=== PATIENT | female | born 1935 | race Caucasian/White ===

== ENCOUNTER 2022-01-28 12:19 | Observation (INO) ==
[2022-01-28] MEDS ORDERED: NS 0.9% 1000 ml BAG 1,000 ML IV ONE (13:26)
[2022-01-28] MEDS ORDERED: Acetaminophen IV 1 GM/100ML 1,000 MG/100 ML BAG IV ONE (13:27)
[2022-01-28] MEDS ORDERED: Ondansetron 4 mg VIAL 2 MG/ML 2 ml VIAL IV ONE (13:28)
[2022-01-28 14:20] LABS: ABS Eosinophils 0.1 10^3/ul (0-0.6); ABS Lymphocytes 0.8 10^3/ul (1.0-4.8); ABS Monocytes 0.4 10^3/ul (0-0.8); ABS Neutrophils 4.2 10^3/ul (1.5-7.7); Eosinophil % 1.2 %; Hematocrit 36 % (35-47); Mean Corpuscular HGB Conc 33 g/dL (31-36); Mean Corpuscular Hemoglobin 32 pg (27-31); Mean Corpuscular Volume 95 fL (80-97); Platelet Count 182 10^3/uL (150-450); Red Blood Count 3.77 10^6 /uL (3.70-4.87); Red Cell Distribution Width 15 % (10-15); White Blood Count 5.5 10^3/uL (3.5-10.8)
[2022-01-28 14:50] LABS: Albumin 3.9 g/dL (3.2-5.2); Albumin/Globulin Ratio 1.7 (1-3); Calcium 8.9 mg/dL (8.6-10.3); Globulin 2.3 g/dL (2-4); Magnesium 1.7 mg/dL (1.9-2.7); Potassium 3.5 mmol/L (3.5-5.0); Total Bilirubin 0.6 mg/dL (0.2-1.0); Total Protein 6.2 g/dL (6.4-8.9); eGFR CKD-EPI 51.1 (>60)
[2022-01-28] MEDS ORDERED: Iodixanol (CONTRAST) 320 MG/ML 100 ML SDV IV ONE (14:53)
[2022-01-28] MEDS ORDERED: Magnesium Sulfate 2 gm BAG 2 GM/50 ML BAG IVPB ONE ×2 (15:25→17:52)
[2022-01-28 15:43] LABS: High Sensitivity Troponin 1 Hr 50 pg/mL (<15)
[2022-01-28 16:41] LABS: Urine Appearance Clear; Urine Bilirubin Negative (Negative); Urine Blood 1+ (Negative); Urine Color Yellow; Urine Glucose Negative (Negative); Urine Ketones Trace (Negative); Urine Nitrite Negative (Negative); Urine Protein Negative (Negative); Urine Specific Gravity 1.015 (1.002-1.030); Urine Urobilinogen Negative (Negative)
[2022-01-28 16:44] LABS: Urine Bacteria Absent (Absent); Urine Red Blood Cell Trace(0-2/hpf) (Absent); Urine Squamous Epithelial Cell Present (Absent); Urine White Blood Cell Trace(0-5/hpf) (Absent)
[2022-01-28] MEDS: NS 0.9% 1000 ml BAG 1,000 ML IV SCH (17:33)
[2022-01-28] MEDS ORDERED: Prochlorperazine 5 mg/ml 2 ml VIAL (10 mg) IV PRN (17:41)
[2022-01-28] MEDS ORDERED: Enoxaparin 30 MG/0.3 ML SYR SUBCUT SCH (21:00)
[2022-01-28] MEDS: KCL 10 MEQ/50 ML IVPREMIX 10 MEQ/50 ML BAG IV SCH (23:26)
[2022-01-29] MEDS ORDERED: Benzocaine (plain) Lozenge 15 MG MT PRN (00:13)
[2022-01-29] MEDS: NIRMATRELVIR/RITONAVIR 1 PAK eGFR 30-60 (see instructions) PO SCH ×2 (00:19→08:06)
[2022-01-29] MEDS: KCL 10 MEQ/50 ML IVPREMIX 10 MEQ/50 ML BAG IV SCH (00:33)
[2022-01-29] MEDS: KCL 10 MEQ/50 ML IVPREMIX 10 MEQ/50 ML BAG ONE ×2 (02:00→02:29)
[2022-01-29] MEDS: NS 0.9% 1000 ml BAG 1,000 ML IV SCH (02:20)
[2022-01-29 07:27] LABS: eGFR CKD-EPI 68.8 (>60)
[2022-01-29 12:34] VITALS: BP 137/61
== END 2022-01-29 14:24 | disposition home or self-care (01) ==
LOC: EDHOLD 12:19 → ED 12:19 → MED 18:22
PROVIDERS: ADMIT Internal Medicine; ATTEND Internal Medicine

== ENCOUNTER 2023-08-03 15:05 | Inpatient (IN) ==
[2023-08-03] MEDS: HYDROmorphone 1 MG/1 ML SYRINGE IV ONE ×3 (15:50→18:44)
[2023-08-03 15:57] LABS: ABS Basophils 0.1 10^3/uL (0.0-0.1); ABS Eosinophils 0.3 10^3/uL (0.0-0.5); ABS Lymphocytes 1.7 10^3/uL (1.0-4.8); ABS Monocytes 0.7 10^3/uL (0.0-0.9); ABS Neutrophils 4.5 10^3/uL (1.5-7.6); ABS Nucleated RBC 0.01 10^3/ul; Eosinophil % 3.9 %; Hematocrit 32.2 % (35-45); Hemoglobin 10.9 g/dL (11.5-14.3); Lymphocyte % 23.3 %; Mean Corpuscular Hemoglobin 32.3 pg (27-33); Mean Corpuscular Hgb Conc 33.8 g/dL (31-36); Mean Corpuscular Volume 95.6 fL (80-97); Mean Platelet Volume 8.4 fL (7.5-11.2); Nucleated Red Blood Cells % 0.1 %/100WBC (0.0-0.8); Platelet Count 283 10^3/uL (150-450); Red Blood Count 3.37 10^6/uL (3.63-4.92); Red Cell Distribution Width 16.7 % (12-17); White Blood Count 7.3 10^3/uL (3.8-11.8)
[2023-08-03] MEDS: NS 0.9% 1000 ml BAG 1,000 ML IV ONE (15:59)
[2023-08-03 16:48] LABS: Albumin 3.9 g/dL (3.2-5.2); Albumin/Globulin Ratio 1.6 (1-3); C Reactive Protein 3.05 mg/L (<8.01); Calcium 9.7 mg/dL (8.6-10.3); Creatinine, Serum 1.04 mg/dL (0.51-0.95); Globulin 2.5 g/dL (2-4); Total Bilirubin 0.4 mg/dL (0.2-1.0); Total Protein 6.4 g/dL (6.4-8.9); eGFR CKD-EPI 51.4 (>60)
[2023-08-04] MEDS: Enoxaparin 40 MG/0.4 ML SYR SUBCUT SCH (04:53)
[2023-08-04] MEDS ORDERED: Morphine 2 MG/ML SYRINGE IV PRN (10:04)
[2023-08-04] MEDS: DULoxetine DR 60 mg CAP PO SCH (11:12)
[2023-08-04] MEDS: Cholecalciferol (VIT D3) 1,000 unit TAB PO SCH (11:12)
[2023-08-04] MEDS: Enoxaparin 30 MG/0.3 ML SYR SUBCUT SCH (11:12)
[2023-08-04] MEDS: Senna TAB 8.6 mg TAB PO SCH (11:13)
[2023-08-04] MEDS: Polyethylene Glycol 3350 17 GM PACKET PO SCH (11:13)
[2023-08-04] MEDS ORDERED: Dexamethasone IV 20 MG in NS 0.9% 50 ML 50 ML IVPB ONE (11:53)
[2023-08-04] MEDS: Dexamethasone IV 20 MG in NS 0.9% 50 ML 50 ML IVPB ONE (15:04)
[2023-08-04] MEDS: Lactated Ringers 1000 ml BAG 1,000 ML IV SCH (15:04)
[2023-08-04] MEDS: Dexamethasone IV 4 MG/ML VIAL 1 ml VIAL IV SLOW PU SCH (22:02)
[2023-08-05 12:13] LABS: ABS Lymphocytes 0.5 10^3/uL (1.0-4.8); ABS Monocytes 0.4 10^3/uL (0.0-0.9); ABS Neutrophils 9.8 10^3/uL (1.5-7.6); Hematocrit 33.3 % (35-45); Hemoglobin 11.1 g/dL (11.5-14.3); Lymphocyte % 5.1 %; Mean Corpuscular Hgb Conc 33.2 g/dL (31-36); Mean Corpuscular Volume 96.5 fL (80-97); Mean Platelet Volume 8.4 fL (7.5-11.2); Platelet Count 237 10^3/uL (150-450); Red Blood Count 3.45 10^6/uL (3.63-4.92); Red Cell Distribution Width 16.6 % (12-17); White Blood Count 10.8 10^3/uL (3.8-11.8)
[2023-08-05 13:03] LABS: Calcium 9.6 mg/dL (8.6-10.3); Creatinine, Serum 0.84 mg/dL (0.51-0.95); Magnesium 1.7 mg/dL (1.9-2.7); Potassium 4.5 mmol/L (3.5-5.0); eGFR CKD-EPI 66.4 (>60)
[2023-08-05] MEDS: Dexamethasone IV 4 MG/ML VIAL 1 ml VIAL IV SLOW PU SCH (15:43)
[2023-08-06 06:24] LABS: ABS Lymphocytes 0.6 10^3/uL (1.0-4.8); ABS Monocytes 0.3 10^3/uL (0.0-0.9); ABS Neutrophils 12.7 10^3/uL (1.5-7.6); ABS Nucleated RBC 0.01 10^3/ul; Eosinophil % 0.1 %; Hematocrit 32.6 % (35-45); Hemoglobin 10.9 g/dL (11.5-14.3); Lymphocyte % 4.1 %; Mean Corpuscular Hemoglobin 31.8 pg (27-33); Mean Corpuscular Hgb Conc 33.4 g/dL (31-36); Mean Corpuscular Volume 95.2 fL (80-97); Mean Platelet Volume 8.4 fL (7.5-11.2); Nucleated Red Blood Cells % 0.1 %/100WBC (0.0-0.8); Platelet Count 269 10^3/uL (150-450); Red Blood Count 3.42 10^6/uL (3.63-4.92); Red Cell Distribution Width 16.7 % (12-17); White Blood Count 13.6 10^3/uL (3.8-11.8)
[2023-08-06 06:47] LABS: Calcium 9.6 mg/dL (8.6-10.3); Creatinine, Serum 0.91 mg/dL (0.51-0.95); Magnesium 1.8 mg/dL (1.9-2.7); Potassium 4.3 mmol/L (3.5-5.0); eGFR CKD-EPI 60.3 (>60)
[2023-08-06] MEDS: Magnesium Sulfate 2 gm BAG 2 GM/50 ML BAG IVPB ONE (08:00)
[2023-08-07] MEDS: Magic MouthWash2-BEN/MAAL/LIDO/NYST 240 ML BTL (alt formulation) SWISH SPIT SCH (14:24)
[2023-08-07] MEDS: Magnesium Sulfate 2 gm BAG 2 GM/50 ML BAG IVPB ONE (17:08)
[2023-08-08 07:50] LABS: ABS Lymphocytes 1.5 10^3/uL (1.0-4.8); ABS Monocytes 1.5 10^3/uL (0.0-0.9); ABS Neutrophils 8.7 10^3/uL (1.5-7.6); ABS Nucleated RBC 0.01 10^3/ul; Eosinophil % 0.1 %; Hematocrit 35.1 % (35-45); Hemoglobin 11.6 g/dL (11.5-14.3); Mean Corpuscular Hemoglobin 31.6 pg (27-33); Mean Corpuscular Volume 95.8 fL (80-97); Mean Platelet Volume 8.9 fL (7.5-11.2); Platelet Count 266 10^3/uL (150-450); Red Blood Count 3.66 10^6/uL (3.63-4.92); Red Cell Distribution Width 16.8 % (12-17); White Blood Count 11.8 10^3/uL (3.8-11.8)
[2023-08-08 08:08] LABS: Calcium 9.3 mg/dL (8.6-10.3); Creatinine, Serum 0.92 mg/dL (0.51-0.95); Magnesium 1.9 mg/dL (1.9-2.7); Potassium 3.9 mmol/L (3.5-5.0); eGFR CKD-EPI 59.5 (>60)
[2023-08-09] MEDS: Polyethylene Glycol 3350 17 GM PACKET PO PRN (14:08)
[2023-08-09] MEDS: Morphine 2 MG/ML SYRINGE IV PRN (18:47)
[2023-08-09] MEDS: Ondansetron 4 mg VIAL 2 MG/ML 2 ml VIAL IV PRN (20:28)
[2023-08-09] MEDS: NS 0.9% 250 ml 250 ML IV ONE (22:40)
[2023-08-10] MEDS: NS 0.9% 500 ml BAG 500 ML IV ONE (01:36)
[2023-08-10 03:01] LABS: Calcium 7.9 mg/dL (8.6-10.3); Creatinine, Serum 0.87 mg/dL (0.51-0.95); eGFR CKD-EPI 63.6 (>60)
[2023-08-10 03:23] LABS: Magnesium 1.9 mg/dL (1.9-2.7)
[2023-08-10 03:24] LABS: Potassium 4.3 mmol/L (3.5-5.0)
[2023-08-10] MEDS: Senna TAB 8.6 mg TAB PO PRN (13:56)
[2023-08-10 15:24] LABS: Calcium 8.8 mg/dL (8.6-10.3); Creatinine, Serum 0.88 mg/dL (0.51-0.95); Potassium 4.1 mmol/L (3.5-5.0); eGFR CKD-EPI 62.8 (>60)
[2023-08-10] MEDS: NS 0.9% 250 ml 250 ML IV SCH (19:41)
[2023-08-10] MEDS: Senna TAB 8.6 mg TAB PO SCH (20:38)
[2023-08-11 12:20] LABS: ABS Eosinophils 0.4 10^3/uL (0.0-0.5); ABS Lymphocytes 0.7 10^3/uL (1.0-4.8); ABS Monocytes 1.1 10^3/uL (0.0-0.9); ABS Neutrophils 8.8 10^3/uL (1.5-7.6); ABS Nucleated RBC 0.01 10^3/ul; Eosinophil % 3.7 %; Hematocrit 35.6 % (35-45); Hemoglobin 11.8 g/dL (11.5-14.3); Lymphocyte % 6.1 %; Mean Corpuscular Hemoglobin 31.9 pg (27-33); Mean Corpuscular Hgb Conc 33.2 g/dL (31-36); Mean Corpuscular Volume 96.2 fL (80-97); Mean Platelet Volume 8.6 fL (7.5-11.2); Nucleated Red Blood Cells % 0.1 %/100WBC (0.0-0.8); Platelet Count 260 10^3/uL (150-450); Red Cell Distribution Width 16.7 % (12-17); White Blood Count 11.1 10^3/uL (3.8-11.8)
[2023-08-11 12:57] LABS: Calcium 8.9 mg/dL (8.6-10.3); Creatinine, Serum 0.81 mg/dL (0.51-0.95); Magnesium 1.9 mg/dL (1.9-2.7); Potassium 4.3 mmol/L (3.5-5.0); eGFR CKD-EPI 69.3 (>60)
[2023-08-12 08:00] LABS: ABS Lymphocytes 0.3 10^3/uL (1.0-4.8); ABS Monocytes 0.2 10^3/uL (0.0-0.9); ABS Neutrophils 7.1 10^3/uL (1.5-7.6); Eosinophil % 0.1 %; Hemoglobin 12.5 g/dL (11.5-14.3); Lymphocyte % 3.3 %; Mean Corpuscular Hemoglobin 32.1 pg (27-33); Mean Corpuscular Hgb Conc 33.7 g/dL (31-36); Mean Corpuscular Volume 95.3 fL (80-97); Mean Platelet Volume 8.2 fL (7.5-11.2); Platelet Count 316 10^3/uL (150-450); Red Blood Count 3.88 10^6/uL (3.63-4.92); Red Cell Distribution Width 16.2 % (12-17); White Blood Count 7.5 10^3/uL (3.8-11.8)
[2023-08-12 08:33] LABS: Albumin 3.9 g/dL (3.2-5.2); Albumin/Globulin Ratio 1.4 (1-3); Calcium 9.3 mg/dL (8.6-10.3); Creatinine, Serum 0.81 mg/dL (0.51-0.95); Globulin 2.8 g/dL (2-4); Magnesium 1.9 mg/dL (1.9-2.7); Potassium 4.8 mmol/L (3.5-5.0); Total Bilirubin 0.4 mg/dL (0.2-1.0); Total Protein 6.7 g/dL (6.4-8.9); eGFR CKD-EPI 69.3 (>60)
[2023-08-13 07:45] LABS: ALT 21 U/L (7-52); Albumin 4.1 g/dL (3.2-5.2); Albumin/Globulin Ratio 1.4 (1-3); Alkaline Phosphatase 83 U/L (35-149); Anion Gap 9 mmol/L (2-16); Blood Urea Nitrogen 28 mg/dL (6-24); CO2 Carbon Dioxide 24 mmol/L (22-32); Calcium 9.7 mg/dL (8.6-10.3); Chloride 96 mmol/L (101-111); Creatinine, Serum 0.77 mg/dL (0.51-0.95); Glucose 112 mg/dL (70-100); Sodium 129 mmol/L (135-145); Total Bilirubin 0.5 mg/dL (0.2-1.0); Total Protein 7.1 g/dL (6.4-8.9); eGFR CKD-EPI 73.7 (>60)
[2023-08-13] MEDS: fentaNYL PATCH 25 MCG/HR 1 PATCH TRANSDERM SCH (17:48)
[2023-08-13] MEDS: fentaNYL Patch Check Q Shift NOTE FOLLOW UP SCH (19:58)
[2023-08-14 07:46] LABS: Rapid COVID-19 Molecular Undetected (Undetected)
[2023-08-14 13:56] VITALS: BP 145/84
== END 2023-08-15 13:10 | DRG 543 ==
LOC: ED 15:05 → EDHOLD 15:05 → SUATTDRO 22:31 → SSU 08-04 10:14 → MED 08-04 10:29 → SUATTDRO 08-06 09:00 → MED 08-06 19:37 → MEDTELE 08-10 03:30
PROVIDERS: ADMIT Internal Medicine; ATTEND Internal Medicine